=== PATIENT | male | born 1945 | race Caucasian/White ===

== ENCOUNTER 2016-12-15 11:10 | Day surgery (SDC) | payer MEDICARE ==
[~2016-12-15] VITALS: Ht 175.3 cm; Wt 72.6 kg
[~2016-12-15 11:10] MED LIST: ASPI-973 PO; CARV6.252 PO; LISI-571 PO; MULT-1018 PO; ROSU40TA PO; Sodium Chloride LOK Flush 10 mL Syringe IV PRN; TERB250T4 PO; UBID100C16 PO; fentaNYL-PF 50 mCg/mL 2 mL Inj IVPUSH PRN
[2016-12-15 11:48] VITALS: BP 123/66; PULSE 50; RESP 16; O2SAT 99
[2016-12-15] MEDS: 0.9% Sodium Chloride 1,000 ML IV PRN ×2 (12:39→14:01)
[2016-12-15 14:12] VITALS: BP 106/54; PULSE 52; RESP 16; O2SAT 99
--- NOTE | 2016-12-15 14:16 | PCM.ENDCOL ---
Colonoscopy Date of Service: December 15, 2016 Physician Kwesi Alexnader MD Pre Procedure Diagnosis: Screening Post Procedure Dx & Findings: Diverticuli and hemorrhoids Procedure Colonoscopy PROCEDURE IN DETAIL: Prep adequate Withdrawal time 10 minutes After unremarkable rectal examination the Olympus video colonoscope was inserted patient's anal canal and was advanced to cecum. Landmarks were identified including the ileocecal valve and appendiceal orifice. Scope was withdrawn systematically. Visualized colonic mucosa showed healthy shiny mucosa with normal healthy-appearing vasculature. Multiple Diverticuli noted mostly in the sigmoid colon however diverticuli noted up to the transverse colon. In the rectum retroflexion was done which showed hemorrhoids. Anal canal was inspected carefully on the way out and hemorrhoids noted. Impression Diverticuli Hemorrhoids Recommendation Repeat colonoscopy in 10 years if there is no family or personal history of colon cancer or polyp. Diverticular diet Presedation Assessment Risks and Benefits Informed consent was obtained from the patient after all risks and benefits including but not limited to drug reaction, infection, pain, bleeding, perforation, as well as alternatives were discussed. Patient monitoring Continuous pulse oximetry, cardiac monitoring, blood pressure monitoring, IV access, and oxygen at 2L per nasal cannula. Periprocedural Fentanyl: Fentanyl 100mcg Incrementally Midazolam: Midazolam 4mg Incrementally Complications There were no periprocedural complications identified. Post Procedure Plan Post Procedure Recommendations 1. Restrict activities today. 2. Resume normal activities in the morning. 3. Resume medications. 4. Patient informed of normal post procedure side effects as bloating, drowsiness, blood streaking in the stool. 5. average risk CRCS. If colon polyps come back as: -Hyperplastic- can repeat colonoscopy in 10 years -Tubular adenoma- repeat colonoscopy in 5 years -Tubulovillous/villous adenoma- repeat colonoscopy in 3 years -If any dysplasia- return to clinic as soon as possible 6. Please don't hesitate to call me with any questions. Kwesi Alexander MD December 15, 2016 14:16
[2016-12-15 14:24] VITALS: BP 114/66; PULSE 54; RESP 16; O2SAT 98
== END 2016-12-15 23:59 | disposition home or self-care (01) ==
LOC: END 11:10
PROVIDERS: ATTEND Internal Medicine
DX: Z12.11 Encounter for screening for malignant neoplasm of colon (principal); K57.30 Diverticulosis of large intestine without perforation or abscess without bleeding; K64.8 Other hemorrhoids; I10 Essential (primary) hypertension; I25.10 Atherosclerotic heart disease of native coronary artery without angina pectoris; E78.00 Pure hypercholesterolemia, unspecified; D69.49 Other primary thrombocytopenia; G47.30 Sleep apnea, unspecified; M19.90 Unspecified osteoarthritis, unspecified site; Z95.5 Presence of coronary angioplasty implant and graft; Z87.891 Personal history of nicotine dependence
CPT/HCPCS: 99153; G0121; G0500; J7030